=== PATIENT | male | born 1945 | race Caucasian/White ===

== ENCOUNTER → 2019-09-05 | Outpatient (CLI) | payer BC ==
[~2019-09-05] MED LIST: coreg; cozaar PO; prevacid PO
[2019-09-05 11:34] LABS: MICROSCOPIC NOT IND
[2019-09-05 11:48] LABS: ANION GAP 4 mmol/L (5-15); CALCIUM 8.8 mg/dL (8.5-10.1); CHLORIDE 109 mmol/L (98-107)
[2019-09-05 11:50] LABS: CREATININE 1.33 mg/dL (0.7-1.3)
[2019-09-05 12:10] LABS: ALANINE AMINOTRANSFERASE 39 U/L (12-78); ALBUMIN 3.6 g/dL (3.4-5.0)
[2019-09-05 12:12] LABS: ALKALINE PHOSPHATASE 124 U/L (45-117); BILIRUBIN,TOTAL 0.7 mg/dL (0.2-1.0); TOTAL PROTEIN 7.6 g/dL (6.4-8.2)
[2019-09-05 12:14] LABS: BASOPHILS # (AUTO) 0.03 x10^3/uL (0-0.1); BASOPHILS % (AUTO) 1 % (0-1); EOSINOPHILS % (AUTO) 5 % (1-7); LYMPHOCYTES # (AUTO) 1.47 x10^3/uL (1-3.4); LYMPHOCYTES % (AUTO) 24 % (22-44); MD NO; MEAN CORPUSCULAR HEMOGLOBIN 33.3 pg (27.5-34.5); MEAN CORPUSCULAR HGB CONC 32.8 g/dL (33.2-36.2); MEAN CORPUSCULAR VOLUME 101.5 fL (81-97); MEAN PLATELET VOLUME 9.1 fL (7.4-10.4); MONOCYTES # (AUTO) 0.57 x10^3/uL (0.2-0.8); MONOCYTES % (AUTO) 9 % (2-9); NEUTROPHILS # (AUTO) 3.89 x10^3/uL (1.8-6.8); NEUTROPHILS % (AUTO) 62 % (42-75); PLATELET COUNT 191 x10^3/uL (130-400); RED BLOOD COUNT 5.08 x10^6/uL (4.38-5.82); RED CELL DISTRIBUTION WIDTH 12.8 % (9.4-14.8)
== END | disposition home or self-care (01) ==
LOC: STAR 10:22
PROVIDERS: ATTEND Urology
DX: Z01.818 Encounter for other preprocedural examination (principal); R33.9 Retention of urine, unspecified; Z87.891 Personal history of nicotine dependence
CPT/HCPCS: 36415; 80053; 81003; 85025; 87086; 93005

== ENCOUNTER 2019-09-21 11:00 | Inpatient (IN) | payer MEDICARE, BC ==
[~2019-09-21] VITALS: Ht 185.4 cm; Wt 101.5 kg
[2019-09-21] MEDS ORDERED: LEVO25TA4 PO (11:34)
[2019-09-21] MEDS ORDERED: LACTATED RINGERS 1,000 ML IV SCH (12:00)
[2019-09-21] MEDS ORDERED: MIDAZOLAM 1 MG/ML, 2ML ONE (12:44)
[2019-09-21] MEDS ORDERED: FENTANYL PF 100 MCG/2ML ONE ×2 (12:45→14:37)
[2019-09-21] MEDS ORDERED: MEPERIDINE/PF 25MG/ML,1ML IVPush PRN (13:30)
[2019-09-21] MEDS ORDERED: OXYcodone 5 MG/5 ML ORAL.SOL UDC PO PRN (13:30)
[2019-09-21] MEDS ORDERED: PROMETHAZINE 25 MG/ML, 1ML IV PRN (13:30)
[2019-09-21] MEDS ORDERED: LABETALOL 5MG/ML, 20ML IV PRN (13:30)
[2019-09-21] MEDS ORDERED: hydrALAzine 20 MG/ML, 1ML IV PRN (13:30)
[2019-09-21] MEDS ORDERED: ONDANSETRON 2MG/ML, 2ML IV PRN ×2 (13:30→15:00)
[2019-09-21] MEDS ORDERED: HYDROmorphone 2 MG/ML, 1ML IVPush PRN (13:30)
[2019-09-21] MEDS ORDERED: FENTANYL PF 100 MCG/2ML IV PRN (13:30)
[2019-09-21] MEDS ORDERED: METOPROLOL 1 MG/ML, 5ML IV PRN (13:30)
[2019-09-21] MEDS ORDERED: CEFAZOLIN 1,000 MG ONE ×2 (13:34→13:36)
[2019-09-21] MEDS ORDERED: PROPOFOL 10 MG/ML, 20ML ONE (13:34)
[2019-09-21] MEDS ORDERED: ONDANSETRON 2MG/ML, 2ML ONE (13:44)
[2019-09-21] MEDS ORDERED: DEXAMETHASONE 4 MG/ML, 1ML ONE (13:44)
[2019-09-21] MEDS ORDERED: METOPROLOL 1 MG/ML, 5ML ONE (14:17)
[2019-09-21] MEDS ORDERED: hydrALAzine 20 MG/ML, 1ML ONE (14:37)
[2019-09-21] MEDS ORDERED: OPIUM/BELLADONNA SUPP.RECT 16.2-30 MG PR PRN (15:00)
[2019-09-21] MEDS ORDERED: TEMAZEPAM 15 MG CAPSULE PO PRN (15:00)
[2019-09-21] MEDS ORDERED: HYDROcodone/APAP 5/325 TABLET PO PRN (15:00)
[2019-09-21 15:29] LABS: ALBUMIN 3.3 g/dL (3.4-5.0); ANION GAP 5 mmol/L (5-15); CALCIUM 8.3 mg/dL (8.5-10.1); CHLORIDE 109 mmol/L (98-107); CREATININE 1.19 mg/dL (0.7-1.3)
[2019-09-21 17:15] VITALS: BP 165/88
[2019-09-21] MEDS ORDERED: LOSARTAN 50MG TABLET ONE (18:19)
[2019-09-21 19:37] VITALS: BP 157/84
[2019-09-21] MEDS: D5%-LACTATED RINGERS 1,000 ML IV SCH (21:03)
[2019-09-21] MEDS: CEFAZOLIN PMX 1GM/50ML 50 ML IVPB SCH (21:03)
[2019-09-22] VITALS (7 sets, daily range): BP systolic 135–180; BP diastolic 71–89
[2019-09-22] MEDS ORDERED: hydrALAzine 20 MG/ML, 1ML IV PRN (01:30)
[2019-09-22] MEDS: CARVEDILOL 3.125 MG TABLET PO SCH ×2 (01:31→05:53)
[2019-09-22] MEDS: CEFAZOLIN PMX 1GM/50ML 50 ML IVPB SCH (05:52)
[2019-09-22] MEDS ORDERED: PANTOPROZOLE 40MG TABLET PO SCH (06:00)
[2019-09-22] MEDS ORDERED: LEVOTHYROXINE 25 MCG TABLET PO SCH (09:00)
[2019-09-22] MEDS ORDERED: LOSARTAN 50MG TABLET PO SCH (09:00)
[2019-09-22] MEDS: D5%-LACTATED RINGERS 1,000 ML IV SCH (11:18)
== END 2019-09-22 15:00 | disposition home or self-care (01) | DRG 713 ==
LOC: OR 11:00 → ORIP 14:38 → 4NE 17:02 → DCLOUNGE 09-22 14:55
PROVIDERS: ADMIT Urology; ATTEND Urology
PROC: 0VB08ZZ Excision of Prostate, Via Natural or Artificial Opening Endoscopic (ICD-10-PCS; principal; 2019-09-21 13:00)
DX: N40.1 Benign prostatic hyperplasia with lower urinary tract symptoms (principal); N13.8 Other obstructive and reflux uropathy; E03.9 Hypothyroidism, unspecified; I10 Essential (primary) hypertension; F32.9 Major depressive disorder, single episode, unspecified; K21.9 Gastro-esophageal reflux disease without esophagitis; Z87.891 Personal history of nicotine dependence
CPT/HCPCS: 36415; 80048; 82040; 85018; 88305; G0378; J0690; J1100; J2250; J2405; J2704; J3010; J0360; J7120; J7121